=== PATIENT | female | born 1970 | race Caucasian/White ===

== ENCOUNTER 2016-05-08 18:01 | Emergency (ER) | payer OTHER ==
[~2016-05-08] VITALS: Wt 68.0 kg
[2016-05-08] MEDS ORDERED: morphine 4 MG/ML VIAL IV STA (20:54)
[2016-05-08] MEDS ORDERED: SOD CHLORIDE 0.9% 1,000 ML IV STA (20:54)
[2016-05-08] MEDS ORDERED: ONDANSETRON 4 MG INJ IV STA (20:54)
--- NOTE | 2016-05-08 21:10 | ERD ---
ER Documentation Chief Complaint Date/Time DATE: 05/08/16 TIME: 21:05 Chief Complaint white and body pain x 2 weeks HPI This is a 46-year-old female presenting to the ER with headache, dizziness, bilateral earache and generalized body ache 3 weeks. Patient was seen by her primary care provider who prescribed Topamax. Patient continues to have headache and dizziness. Patient states she feels like the room is spinning. No syncopal episodes. Describes generalized headache. No localized area of pain. Denies neck pain or stiffness of neck. No chest pain, shortness breath or difficulty breathing. No change in mood or behavior. No change in memory. No difficulty speaking or walking. No fevers or chills. Patient reports nausea however no vomiting. ROS All systems reviewed and are negative except as per history of present illness. Medications Home Meds Active Scripts Amoxicillin* (Amoxicillin*) 500 Mg Cap, 500 MG PO BID for 10 Days, CAP Prov:RASHEED LOBMARDO NP 05/08/16 Meclizine Hcl* (Antivert*) 12.5 Mg Tab, 12.5 MG PO Q6H Y for DIZZINESS, #20 TAB Prov:RASHEED LOMBARDO NP 05/08/16 Ondansetron Hcl* (Zofran*) 4 Mg Tablet, 4 MG PO Q6H for NAUSEA AND/OR VOMITING, #10 TAB Prov:RASHEED LOMBARDO NP 05/08/16 Reported Medications [None] No Conflict Check 11/10/09 Allergies Allergies: Coded Allergies: No Known Allergies (Verified Allergy, Mild, 11/10/09) PMhx/Soc Medical and Surgical Hx: pt denies Medical Hx, pt denies Surgical Hx History of Surgery: No Anesthesia Reaction: No Hx Neurological Disorder: No Hx Respiratory Disorders: No Hx Cardiac Disorders: No Hx Psychiatric Problems: No Hx Miscellaneous Medical Probl: No Hx Alcohol Use: No Hx Substance Use: No Hx Tobacco Use: No Physical Exam Vitals Vital Signs Date Time Temp Pulse Resp B/P Pulse Ox O2 Delivery O2 Flow Rate FiO2 05/08/16 18:38 98.5 75 20 170/81 95 Physical Exam Const: Alert Head: Atraumatic Eyes: Normal Conjunctiva ENT: Normal External Ears, Nose and Mouth. No erythema or exudate to posterior pharynx. Left ear canal erythematous without bulging of tympanic membrane. Right ear canal and tympanic membrane normal. Neck: Full range of motion..~ No meningismus. No lymphadenopathy. Resp: Clear to auscultation bilaterally. No wheezing, rhonchi or crackles. Cardio: Regular rate and rhythm, no murmurs Abd: Soft, non tender, non distended. Normal bowel sounds Skin: No petechiae or rashes Back: No midline or flank tenderness Ext: No cyanosis, or edema Neur: Awake and alert Psych: Normal Mood and Affect Result Diagram: 05/08/16213705/08/162137 Results 24 hrs Laboratory Tests Test 05/08/16 21:38 05/08/16 21:50 Activated Partial Thromboplast Time 28.1Sec Anion Gap 21 Basophils # 0.110^3/ul Basophils % 0.6% Blood Urea Nitrogen 21mg/dl Calcium Level 9.7mg/dl Carbon Dioxide Level 23mmol/L Chloride Level 105mmol/L Creatinine 0.77mg/dl Eosinophils # 0.210^3/ul Eosinophils % 2.4% Glucose Level 104mg/dl Hematocrit 45.8% Hemoglobin 15.3g/dl INR International Normalized Ratio 0.92 Lymphocytes # 4.110^3/ul Lymphocytes % 42.5% Mean Corpuscular Hemoglobin 29.5pg Mean Corpuscular Hemoglobin Concent 33.5g/dl Mean Corpuscular Volume 88.2fl Mean Platelet Volume 9.9fl Monocytes # 0.510^3/ul Monocytes % 5.2% Neutrophils # 4.810^3/ul Neutrophils % 49.3% Nucleated Red Blood Cells # 0.010^3/ul Nucleated Red Blood Cells % 0.0/100WBC Platelet Count 71226^3/UL Potassium Level 4.0mmol/L Prothrombin Time 12.4Sec Prothrombin Time Ratio 1.0 Red Blood Count 5.1910^6/ul Red Cell Distribution Width 13.2% Sodium Level 145mmol/L White Blood Count 9.710^3/ul Bedside Urine Blood Trace-lysed Bedside Urine Glucose (UA) Negative Bedside Urine Ketones (LAB) Negative Bedside Urine Leukocyte Esterase (L Negative Bedside Urine Nitrite (LAB) Negative Bedside Urine Protein (LAB) Negative Bedside Urine pH (LAB) 5.5 Current Medications Medications (Trade) Dose Ordered Sig/Trever Route PRN Reason Start Time Stop Time Status Last Admin Dose Admin Sodium Chloride (NS) 1,000 ml @ 1,000 mls/hr Q1H STAT IV 05/08/16 20:54 05/08/16 21:53 DC 05/08/16 21:40 Ondansetron HCl (Zofran Inj) 4 mg ONCE STAT IV 05/08/16 20:54 05/08/16 20:58 DC 05/08/16 21:41 Morphine Sulfate (morphine) 4 mg ONCE STAT IV 05/08/16 20:54 05/08/16 20:58 DC 05/08/16 21:41 Procedures/MDM ED COURSE: The patient was stable throughout ED course. I kept the patient and/or family informed of laboratory and diagnostic imaging results throughout the ED course. Laboratory CBC unremarkable BMP sodium 145, anion gap 21, BUN 21 otherwise unremarkable PT 12.4 INR 0.92 PTT 28.1 Urine dip trace blood otherwise negative Imaging CT head Patient: DIGNA HORNE : 1970 Age: 46 Sex: F MR #: [id number] DOS: 05/08/162053 Ordering MD: RASHEED LOMBARDO NP Location: [facility] Room/Bed: PROCEDURE: CT Brain without contrast. CLINICAL INDICATION: Dizziness TECHNIQUE: A CT of the brain was performed on a GE [employer] 64-slice CT scanner utilizing axial imaging from the skull base through the vertex without IV contrast. Multiplanar reformatted images were made. Images were reviewed on a PACS workstation. The CTDIvol is 44.63 mGy and the DLP is 630.20 mGycm. One of the following 3 dose reduction techniques were used: Automated exposure control; adjustment of the mA and/or kV according to patient size; or use of iterative reconstruction technique. COMPARISON: None FINDINGS: There is no intracranial hemorrhage, mass effect, or midline shift. No extra- axial fluid collection is seen. The ventricles and sulci are normal in size and configuration. The density of the brain is normal, and the lara white matter differentiation appears well-preserved. The visualized scalp and calvarium are normal. The bilateral orbits are normal. The bilateral paranasal sinuses, mastoid air cells and middle ear cavities are clear. IMPRESSION: 1. No evidence of acute intracranial hemorrhage, infarcts or acute intracranial pathology. 2. Normal noncontrast head CT. EKG: As interpreted by Rate/Rhythm: Normal Sinus Rhythm with sinus arrhythmia with heart rate 73 bpm QRS, ST, T-waves: No changes consistent w/ acute ischemia Impression: No evidence of ischemia or arrhythmia MDM: 46-year-old female presents emergency department for headache, dizziness, bilateral earache and generalized body pain 3 weeks. Exam reveals erythematous right ear canal otherwise unremarkable physical exam. Normal neuro exam. EKG shows normal sinus rhythm with sinus arrhythmia with heart rate 73 bpm as interpreted by Dr. Etienne. Patient has history of headaches and is taking Topamax per her primary care doctor. No fevers or chills. Labs show slight dehydration. IV fluid bolus of normal saline given. Patient also given morphine and Zofran while in the ED with good relief of headache and body ache. Patient states dizziness has improved. Patient continues to have left earache. Exam reveals erythematous left ear canal. Vital signs remained stable throughout ED visit. No shortness of breath or difficulty breathing. Denies chest pain. Patient resting comfortably. Differential diagnosis includes but not limited to migraine headache, tension headache, BPPV, otitis media, and influenza. Low suspicion for mass, intracranial hemorrhage or CVA. Patient is appropriate for outpatient management will be given prescription for amoxicillin, Zofran and meclizine. Instructed patient to follow-up with primary care provider in the next 1-2 days for reassessment and additional management. Return to ED for any high fever, chest pain, difficulty breathing, shortness breath, wheezing, vomiting, diarrhea, abdominal pain or any new or worsening symptoms. Patient verbalizes understanding. All questions answered at discharge. Departure Diagnosis: Primary Impression: Headache Headache type: unspecified Headache chronicity pattern: chronic headache Intractability: not intractable Qualified Code: R51 - Chronic nonintractable headache, unspecified headache type Additional Impression: Otitis media Otitis media type: unspecified Laterality: left Chronicity: unspecified Qualified Code: H66.92 - Left otitis media, unspecified chronicity, unspecified otitis media type Condition: RASHEED Fry NP May 08, 2016 21:09
[2016-05-08 21:49] LABS: URINE BLOOD (Dip) POC Trace-lysed (NEGATIVE)
[2016-05-08 22:15] LABS: BASOPHIL # 0.1 10^3/ul (0.0-0.1); BASOPHILS % 0.6 % (0.0-2.0); EOSINOPHILS # 0.2 10^3/ul (0.0-0.5); EOSINOPHILS % 2.4 % (0.0-7.0); HEMATOCRIT 45.8 % (37.0-47.0); HEMOGLOBIN 15.3 g/dl (12.0-16.0); LYMPHOCYTES # 4.1 10^3/ul (0.8-2.9); LYMPHOCYTES % 42.5 % (15.0-51.0); MEAN CORPUSCULAR HEMOGLOBIN 29.5 pg (29.0-33.0); MEAN CORPUSCULAR HGB CONC 33.5 g/dl (32.0-37.0); MEAN CORPUSCULAR VOLUME 88.2 fl (82.0-101.0); MEAN PLATELET VOLUME 9.9 fl (7.4-10.4); MONOCYTE # 0.5 10^3/ul (0.3-0.9); MONOCYTES % 5.2 % (0.0-11.0); NEUTROPHIL # 4.8 10^3/ul (1.6-7.5); NEUTROPHILS % 49.3 % (39.0-77.0); PLATELET COUNT 294 10^3/UL (140-440); RED BLOOD COUNT 5.19 10^6/ul (4.20-5.40); RED CELL DISTRIBUTION WIDTH 13.2 % (11.5-14.5); UNCORRECTED WBC 9.7 10^3/ul (4.8-10.8); WHITE BLOOD COUNT 9.7 10^3/ul (4.8-10.8)
[2016-05-08 22:16] LABS: CONDITION 1
--- NOTE | 2016-05-08 22:18 | RADRPT ---
PROCEDURE: CT Brain without contrast. CLINICAL INDICATION: Dizziness TECHNIQUE: A CT of the brain was performed on a GE [employer] 64-slice CT scanner utilizing axial imaging from the skull base through the vertex without IV contrast. Multiplanar reformatted images were made. Images were reviewed on a PACS workstation. The CTDIvol is 44.63 mGy and the DLP is 630 .20 mGycm. One of the following 3 dose reduction techniques were used: Automated exposure control; adjustment of the mA and/or kV according to patient size; or use of iterative reconstruction technique. COMPARISON: None FINDINGS: There is no intracranial hemorrhage, mass effect, or midline shift. No extra-axial fluid collection is seen. The ventricles and sulci are normal in size and configuration. The density of the brain is normal, and the lara white matter differentiation appears well-preserved. The visualized scalp and calvarium are normal. The bilateral orbits are normal. The bilateral para nasal sinuses, mastoid air cells and middle ear cavities are clear. IMPRESSION: 1. No evidence of acute intracranial hemorrhage, infarcts or acute intracranial pathology. 2. Normal noncontrast head CT. RPTAT: [facility] .Linda Sotomayor MD, MD Date Time Electronically viewed and signed by .Linda Sotomayor MD, MD on 05/08/2016 22:18 .C/
[2016-05-08 22:22] LABS: INR 0.92; PARTIAL THROMBOPLASTIN TIME 28.1 Sec (25.0-35.0); PROTIME 12.4 Sec (12.2-14.2)
[2016-05-08 22:25] LABS: CREATININE 0.77 mg/dl (0.44-1.00)
[2016-05-08 22:26] LABS: CALCIUM 9.7 mg/dl (8.4-10.2)
[2016-05-08] MEDS ORDERED: ONDA4TAB8 PO (23:47)
[2016-05-08] MEDS ORDERED: MECL12.574 PO (23:47)
[2016-05-08] MEDS ORDERED: AMO500 PO (23:47)
[2016-05-09 00:51] VITALS: BP 129/80; PULSE 78; RESP 16; TEMP 98.7
== END 2016-05-09 01:01 | disposition home or self-care (01) ==
LOC: FTE 18:01
DX: R51 Headache (principal); H66.92 Otitis media, unspecified, left ear; R42 Dizziness and giddiness; R11.0 Nausea
CPT/HCPCS: 36415; 70450; 80048; 81003; 85025; 85610; 85730; 93005; 96374; 96375; J2270; J2405; J7030; Z7502

== ENCOUNTER 2017-08-21 08:16 | Emergency (ER) | END 2017-08-21 12:15 | disposition home or self-care (01) ==